=== PATIENT | male | born 1980 | race African-American/Black ===

== ENCOUNTER 2016-07-03 11:10 | Inpatient (IN) ==
[2016-07-03] MEDS ORDERED: NITROGLYCERIN SL 0.4 MG TABLET SL ONE (13:01)
[2016-07-03] MEDS: NITROGLYCERIN SL 0.4 MG TABLET SL PRN ×2 (13:02→14:43)
[2016-07-03 13:06] LABS: Basophils % 0.3 % (0.0-0.8); Eosinophils # 0.3 10*3/uL (0.0-0.87); Eosinophils % 2.5 % (0.00-10.9); Hemoglobin 14.4 GM/DL (14.0-18.0); Immature Granulocytes % 0.3 %; Immature Granulocytes Absolute 0.03 #; Lymphocytes # 2.8 10*3/uL (1.4-4.0); Lymphocytes % 24.3 % (21.2-54.2); Mean Corpuscular HGB Conc 35.1 GM/DL (32-36); Mean Corpuscular Hemoglobin 30 PG (27-34); Mean Corpuscular Volume 84.7 FL (87-102); Mean Platelet Volume 11.7 FL (9.6-12.0); Monocytes # 1.3 10*3/uL (0.11-0.8); Monocytes % 11.5 % (1.7-12.7); Neutrophils % 61.1 % (38.7-73.9); Platelet Count 202 T/CUMM (130-400); Red Blood Count 4.84 MC/CUMM (3.8-5.5); Red Cell Distribution Width 12.2 % (9.3-17.3); White Blood Count 11.5 T/CUMM (4-12)
--- NOTE | 2016-07-03 13:24 | XRay Report ---
XR chest 2V Indication: Chest pain. Hypertension. Comparison: Chest x-ray 06/07/2011. Technique: PA and lateral chest x-ray was performed. Findings: Heart size, mediastinal contour, and hilar structures demonstrate no significant abnormalities. The lung parenchyma is clear. Bones and soft tissues demonstrate no significant abnormalities. Impression: 1. No active cardiopulmonary disease. 07/03/2016 1:20 PM PROCEDURE INTERPRETED AT [facility] DEPARTMENT OF RADIOLOGY Final Report Signed by: Dr. Caleb Whittington
[2016-07-03 13:42] LABS: Alanine Aminotransferase 26 U/L (16-61); Albumin 3.9 G/DL (3.4-5.0); Alkaline Phosphatase 78 U/L (45-117); Aspartate Amino Transferase 16 U/L (0-37); Blood Urea Nitrogen 12 MG/DL (7-18); Calcium 8.7 MG/DL (8.5-10.1); Glucose 91 MG/DL (74-106); Osmolality,Calculated 278.4 MOS/KG (273-304); Potassium 3.2 MMOL/L (3.5-5.1); Sodium 140 MMOL/L (136-145); Total Protein 7.6 G/DL (6.4-8.3); Troponin I Only < 0.015 NG/ML (0.00-0.045)
--- NOTE | 2016-07-03 14:47 | Emergency Department Note ---
Arrival - Arrival Chief Complaint: Non-Specific Stated Complaint: Chest pains/B/P ED Nursing Triage Note: Pt c/o high blood pressure, dizziness, chest pain, heart racing, and near syncope that has been coming and going for over one month. EKG done in triage. Mode of Arrival: Ambulatory Source: Patient Time Seen by Provider: 07/03/16 12:29 - History of Present Illness HPI Narrative: 36 y/o male presents to the ER complaining of elevated blood pressure, dizziness , chest pain, palpitations, and near syncopal episodes. Symptoms started one month ago but have progressively worsened. Describes chest pain as a sharp pain that radiates down his left arm. Reports nausea and diaphoresis. Denies dyspnea. Patient took Aspirin prior to arrival. Past medical history significant for HTN and is currently taking HCTZ 12.5 mg. No primary care physician. Onset (ago): month(s) (1) Consistency: constant Severity: mild Quality: sharp Review of System - Review of System 12 point system: reviewed and no additional remarkable complaints except as stated - Review of System Cardiovascular: Present: chest pain, palpitations Neurological: Present: other (near syncope ) Medical,Surgical,& Family Hx - Medical History Cardio: History of: Hypertension - Social History Smoking Status: Never smoker Exam Vital Signs: Vital Signs Temperature 98 F 07/03/16 12:21 Pulse Rate 68 07/03/16 13:30 Respiratory Rate 20 07/03/16 13:30 Blood Pressure 134/97 07/03/16 13:30 O2 Sat by Pulse Oximetry 98 07/03/16 11:32 - General General appearance: alert, in no apparent distress - Eye Eye exam: Present: PERRL, EOMI - ENT ENT exam: Present: normal exam, normal oropharynx, mucous membranes moist - Neck Neck exam: Present: normal inspection. Absent: meningismus - Chest Chest inspection: Present: normal inspection - Respiratory Respiratory exam: Present: normal lung sounds bilaterally - Cardiovascular Cardiovascular exam: Present: regular rate, normal rhythm, normal heart sounds - Abdominal Exam Abdominal exam: Present: soft, normal bowel sounds. Absent: tenderness - Extremities Exam Extremities exam: Present: normal inspection, full ROM - Neurological Exam Neurological exam: Present: alert, oriented X3, CN II-XII intact, normal gait - Psychiatric Psychiatric exam: Present: normal affect, normal mood - Skin Skin exam: Present: warm, dry Course - Consultations Consultation #1: Hospitalist Time: 15:00 (Discussed case with Hospitalist TEST BAKER. Will admit patient. ) Results - Labs CBC & BMP: 07/03/16 12:51 07/03/16 12:51 Lab Results: I have reviewed the patients labs - EKG EKG results: sinus rhythm - Diagnostic Findings Procedure: Chest x-ray: image reviewed by me, report reviewed by me (no acute abnormality ) Disposition Clinical Impression: Chest pain, Hypertension Disposition: Still a Patient
[2016-07-03] MEDS ORDERED: POTASSIUM CHLORIDE 20 MEQ TABLET PO STA (14:56)
[2016-07-03] MEDS ORDERED: POTASSIUM CHLORIDE 20 MEQ TABLET PO ONE (15:00)
--- NOTE | 2016-07-03 15:40 | Hospitalist History & Physical ---
Assessment and Plan - Time spent with patient Time spent with patient: Greater than 30 minutes (1) Chest pain Status: Acute Assessment and plan: Will obtain serial cardiac enzymes and echo; if positive; will consult Cardiology. Current Visit: Yes (2) Hypertension Status: Acute Assessment and plan: The patient presented with gross hypertension. He was given several agents in urgent care. We will start Norvasc and Coreg; will add Hydralazine PRN. I am concerned that the patient may have some target organ damage; will obtain echo and renal ultrasound to assessed. Discussed in great detail the importance of medical compliance; both patient and mother seem concerned about his current rodrigo status. Patient has a strong family history of hypertension, myocardial infarction, and cerebral vascular accident. Current Visit: Yes History of Present Illness Chief complaint: chest pain/hypertensive emergency History of present illness: This is a very pleasant 36 year old male that presented to [facility] for evaluation of "high blood pressure". The patient reports a past medical history of hypertension. He reports remote diagnosis in 2010 in which he was prescribed medications at that time. He reports that he stopped taking the medications because" it made him feel bad". Recently; he presented to a clinic in [place] for evaluation of headaches and visual disturbances. At that time, he was started back on low dose hydrochlorothiazide and instructed to follow-up. On yesterday, he reported a gradual onset of headache and visual disturbances. He reported that he started having chest pain and discomfort this morning in addition to the headache and visual disturbances. He was given an aspirin by his mother. He became alarmed and decided to seek medical attention. Incidentally, the patient reports the onset of intermittent chest pain over one month ago; however was able to manage the symptoms. At the time of presentation, he was noted to be grossly hypertensive with a blood pressure noted at 201/108 and complaining of chest pain. Nitroglycerin was applied and EKG was obtained which reported normal sinus . Chest radiograph was essentially unremarkable. Labs were obtained which reported slight hypokalemia with a potassium of 3.2, troponin of <0.015, and CKMB of <1.0. After brief discussion with both PATRICK Joaquin and Dr. Leyva, the patient will be admitted to the hospitalist service for continuation of care. Home Medications Medication Instructions Recorded Confirmed Type hydroCHLOROthiazide 12.5 PO DAILY 07/03/16 History [Hydrochlorothiazide] Allergies Allergy/AdvReac Type Severity Reaction Status Date / Time No Known Allergies Allergy Verified 07/03/16 15:34 Medical,Surgical,& Family Hx - Medical History Cardio: History of: Hypertension - Social History Smoking Status: Never smoker 12 point system: reviewed and no additional remarkable complaints except as stated Exam - Constitutional Vitals: Period Temp Pulse Resp BP Sys/Main Pulse Ox Last 24 Hr 98 F-98.0 F 65-79 18-20 134-201/95-108 98-100 General appearance: normal weight, no acute distress - Head Head exam: Present: normal inspection, normocephalic, atraumatic - Eye Eye exam: Present: EOMI. Absent: conjunctival injection Pupils: Present: ABRAN, normal accommodation - ENT ENT exam: Present: normal exam, normal external ear exam, normal oropharynx - Neck Neck exam: Present: normal inspection. Absent: lymphadenopathy, meningismus, tenderness, thyromegaly - Respiratory Respiratory exam: Present: clear to auscultation bilaterally. Absent: rales, stridor, wheezes - Cardiovascular Cardiovascular exam: Absent: carotid bruit, diastolic murmur, gallop, JVD, rubs , systolic murmur - GI/Abdominal GI/Abdominal exam: Present: normal bowel sounds, soft - Extremities Exam Extremities exam: Present: normal inspection, normal capillary refill, full ROM , edema - Back Exam Back exam: Present: normal inspection - Neurological Exam Neurological exam: Present: alert, oriented X3, CN II-XII intact - Psychiatric Psychiatric exam: Present: normal affect, normal mood - Skin Skin exam: Present: normal color, warm, dry Results - Labs CBC & BMP: 07/03/16 12:51 07/03/16 12:51 Lab Results: I have reviewed the past 24 hour labs
[2016-07-03] MEDS ORDERED: ONDANSETRON 4 MG/2 ML VIAL IV PRN (15:47)
[2016-07-03] MEDS ORDERED: hydrALAZINE 20 MG/1 ML VIAL IV PRN (15:47)
--- NOTE | 2016-07-03 15:52 | EKG Report ---
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
--- NOTE | 2016-07-03 16:30 | Ultrasound Report ---
US renal Bilateral Indication: Hypertension Comparison: None. Technique: Using transcutaneous probe, routine renal ultrasound was performed. Ultrasound images were captured and stored. Findings: Right kidney measures approximately 10 cm in craniocaudal dimension. Left kidney measures approximately 10 cm in craniocaudal dimension. Neither kidney demonstrates evidence of hydronephrosis, perinephric fluid collection, or nephrolithiasis. The renal cortices are relatively hyperechoic and loss of normal architectural detail is present. Impression: 1. Nonspecific hyperechoic appearance of the renal cortices may reflect sequelae of medical renal disease. 07/03/2016 4:26 PM PROCEDURE INTERPRETED AT [facility] DEPARTMENT OF RADIOLOGY Final Report Signed by: Dr. Caleb Whittington
[2016-07-03 17:09] LABS: Magnesium 2.2 MG/DL (1.8-2.4); Phosphorous 3.7 MG/DL (2.5-4.9); Risk Ratio 3.7; Troponin I Only 0.017 NG/ML (0.00-0.045)
--- NOTE | 2016-07-03 18:24 | EKG Report ---
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
[2016-07-03] MEDS: CARVEDILOL 12.5 MG TABLET PO SCH (20:10)
[2016-07-03] MEDS ORDERED: CARVEDILOL 6.25 MG TABLET PO SCH (21:00)
[2016-07-03] MEDS ORDERED: PHENOL 1.4% THROAT SPRAY 177 ML BOTTLE PO PRN (23:42)
[2016-07-04 05:48] LABS: Basophils % 0.2 % (0.0-0.8); Eosinophils # 0.3 10*3/uL (0.0-0.87); Eosinophils % 2.7 % (0.00-10.9); Hematocrit 40.9 VOL% (42.0-52.0); Hemoglobin 14.3 GM/DL (14.0-18.0); Immature Granulocytes % 0.4 %; Immature Granulocytes Absolute 0.04 #; Lymphocytes # 1.8 10*3/uL (1.4-4.0); Lymphocytes % 19.2 % (21.2-54.2); Mean Corpuscular Hemoglobin 30 PG (27-34); Mean Corpuscular Volume 84.5 FL (87-102); Mean Platelet Volume 12.1 FL (9.6-12.0); Monocytes % 10.8 % (1.7-12.7); Neutrophils # 6.3 10*3/uL (1.4-7.4); Neutrophils % 66.7 % (38.7-73.9); Platelet Count 193 T/CUMM (130-400); Red Blood Count 4.84 MC/CUMM (3.8-5.5); Red Cell Distribution Width 11.9 % (9.3-17.3); White Blood Count 9.4 T/CUMM (4-12)
[2016-07-04 06:17] LABS: Albumin 3.6 G/DL (3.4-5.0); Bilirubin,Total 1.6 MG/DL (0.2-1.0); Calcium 8.8 MG/DL (8.5-10.1); Magnesium 2.3 MG/DL (1.8-2.4); Osmolality,Calculated 281.3 MOS/KG (273-304); Phosphorous 3.7 MG/DL (2.5-4.9); Potassium 3.6 MMOL/L (3.5-5.1); Total Protein 6.4 G/DL (6.4-8.3)
--- NOTE | 2016-07-04 06:17 | EKG Report ---
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
--- NOTE | 2016-07-04 07:53 | Discharge Summary ---
Hospital Course - Hospital Course Hospital Course: 36-year-old -[place] male presents to the emergency room with complaints of chest pain. Serial troponins are negative. EKG nonspecific ST changes. Patient was hypertensive on admission but is now well controlled. We will set him up for an outpatient stress test. Patient also complaining of sore throat. He is got a pustule over his left tonsil consistent with most likely strep throat. We will treat amoxicillin for 10 days. Follow-up with Dr. Benitez as he does not have a primary care physician. Patient has a mass on he is right leg feels more like a fatty tumor could be fibroid in nature. We will send him to dermatology to aspirate and treat. Patient's mother is at bedside she reports having malignant tumors that run in her side of the family that show up looking like fatty tumors. - Time spent with patient Time with patient DS: Less than 30 minutes (25 min) Discharge Plan - Discharge Data Disposition: Disch To Home/Self Care Condition at Discharge: Stable Discharge Diet: heart healthy Activity: resume usual activities as tolerated Hygiene: no restrictions Weight Bearing at Discharge: full weight bearing - Discharge Medications New Carvedilol [Coreg] 12.5 mg PO BID #60 tablet Phenol 1.4% Throat [place] [Chloraseptic [place]] 5 spray PO Q2H PRN #0 bottle PRN Reason: Sore Throat Amoxicillin Cap/Tab 500 mg PO BID #20 capsule amLODIPine [Norvasc] 10 mg PO DAILY #30 tablet Discontinued hydroCHLOROthiazide [Hydrochlorothiazide] 12.5 mg PO DAILY - Follow Up or Referral Follow Up: Dr. mireille [Other] - 2 Weeks (right leg mass, ?fatty tumor ) [place] benitez [Other] - 2 Weeks [facility], stress test [Other] - 1 Week - Forms/Instructions Exam - Constitutional Vitals: Period Temp Pulse Resp BP Sys/Main Pulse Ox Last 24 Hr 97.9 F-99.8 F 65-79 18-20 137-172/65-112 92-100 General appearance: normal weight, no acute distress - Respiratory Respiratory exam: Present: clear to auscultation bilaterally - Cardiovascular Cardiovascular exam: Present: regular rate and rhythm - GI/Abdominal GI/Abdominal exam: Present: normal bowel sounds, soft. Absent: tenderness - Extremities Exam Extremities exam: Present: normal inspection, normal capillary refill - Neurological Exam Neurological exam: Present: alert, oriented X3 - Psychiatric Psychiatric exam: Present: normal affect, normal mood Discharge Results Procedures and tests throughout hospitalization: Pending Orders 07/03/16 12:51 Thyroid Function Toole, S Stat Labs on day of discharge: Labs from last 24 hours 07/04/16 07/04/16 07/03/16 04:29 04:29 21:54 WBC 9.4 RBC 4.84 Hgb 14.3 Hct 40.9 L MCV 84.5 L MCH 30 MCHC 35.0 RDW 11.9 Plt Count 193 MPV 12.1 H Neut % (Auto) 66.7 Lymph % (Auto) 19.2 L [place] % (Auto) 10.8 Eos % (Auto) 2.7 Baso % (Auto) 0.2 Neut # (Auto) 6.3 Lymph # (Auto) 1.8 [place] # (Auto) 1.0 H Eos # (Auto) 0.3 Baso # (Auto) 0.0 Immature Gran % 0.4 Nucleated RBC % 0.0 Immature Gran # 0.04 Nucleated RBCs # 0.00 Sodium 141 Potassium 3.6 Chloride 106 Carbon Dioxide 27 Anion Gap 11.6 BUN 14 Creatinine 1.10 GFR Calculation 132 BUN/Creatinine Ratio 12.00 Glucose 93 Calculated Osmolality 281.3 Calcium 8.8 Phosphorus 3.7 Magnesium 2.3 Total Bilirubin 1.60 H AST 14 ALT 23 Alkaline Phosphatase 72 Troponin I 0.019 Total Protein 6.4 Albumin 3.6 Globulin 2.8 Albumin/Globulin Ratio 1.2 Triglycerides Cholesterol LDL Cholesterol VLDL Cholesterol HDL Cholesterol Heart Disease Risk Ratio 07/03/16 07/03/16 18:59 16:03 WBC RBC Hgb Hct MCV MCH MCHC RDW Plt Count MPV Neut % (Auto) Lymph % (Auto) [place] % (Auto) Eos % (Auto) Baso % (Auto) Neut # (Auto) Lymph # (Auto) [place] # (Auto) Eos # (Auto) Baso # (Auto) Immature Gran % Nucleated RBC % Immature Gran # Nucleated RBCs # Sodium Potassium Chloride Carbon Dioxide Anion Gap BUN Creatinine GFR Calculation BUN/Creatinine Ratio Glucose Calculated Osmolality Calcium Phosphorus 3.7 Magnesium 2.2 Total Bilirubin AST ALT Alkaline Phosphatase Troponin I 0.024 0.017 Total Protein Albumin Globulin Albumin/Globulin Ratio Triglycerides 110 Cholesterol 163 LDL Cholesterol 100.0 VLDL Cholesterol 22.0 HDL Cholesterol 44 Heart Disease Risk Ratio 3.70 DS: Provider Date of admission: 07/03/16 15:01 Primary care physician: . No PCP Attending physician on admission: Kaia Maloney MD Consults: 07/03/16 16:03 Consult to Physician [CONS] Routine Comment: chest pain Consulting Provider: Consult to Specialist Group: Cardiology When should Consulting Provider be notified: In am Discharging clinician: Beth Burger MD
[2016-07-04 08:10] VITALS: BP 132/81
[2016-07-04] MEDS: CARVEDILOL 12.5 MG TABLET PO SCH (08:35)
[2016-07-04] MEDS ORDERED: hydroCHLOROthiazide 25 MG TABLET PO SCH (09:00)
[2016-07-04] MEDS ORDERED: amLODIPine 10 MG TABLET PO SCH (09:00)
[2016-07-04] MEDS ORDERED: AMOXICILLIN 500 MG CAPSULE PO SCH (09:00)
[2016-07-04] MEDS ORDERED: ASPIRIN 325 MG TABLET PO SCH (09:00)
[2016-07-04] MEDS ORDERED: amLODIPine 5 MG TABLET PO SCH (09:00)
--- NOTE | 2016-07-04 18:57 | ECHO Report ---
Adela Salazar Exam Date: 07/04/2016 08:55 Referring Physician: Technologist: Olivia Kapoor Age: 36 Ht (in): 72 Wt (lb): 241 Gender: M Exam Location: [facility] Echo Indications: Chest pain, unspecified, Essential (primary) hypertension BP: 137 / 65 HR: 69 Rhythm: Sinus Technical Quality: Fair IMPRESSIONS Normal LV systolic function, ejection fraction 65%. Normal diastolic function. Borderline left ventricular hypertrophy. Trace tricuspid regurgitation. Mild pulmonic regurgitation. MEASUREMENTS (Male / Female) Normal Values 2D ECHO LV Diastolic Diameter PLAX 4.9 cm 4.2 - 5.9 / 3.9 - 5.3 cm LV Systolic Diameter PLAX 3.0 cm LV Fractional Shortening PLAX 38.5 % IVS Diastolic Thickness 1.1 cm 0.6 - 1.0 / 0.6 - 0.9 cm LVPW Diastolic Thickness 1.2 cm 0.6 - 1.0 / 0.6 - 0.9 cm RV Internal Dim ED PLAX 3.5 cm Aortic Root Diameter 3.1 cm LA Systolic Diameter LX 3.6 cm 3.0 - 4.0 / 2.7 - 3.8 cm DOPPLER TR Peak Velocity 225.0 cm/s TR Peak Gradient 20.3 mmHg FINDINGS Left Ventricle Normal left ventricular cavity size. Mild left ventricular hypertrophy. Left ventricular ejection fraction is estimated at 65 %. Right Ventricle The right ventricle is normal in size and function. Right Atrium The right atrium is normal in size. Left Atrium The left atrium is normal in size. Mitral Valve Morphologically normal mitral valve without significant stenosis or prolapse. There is no mitral regurgitation. Aortic Valve Morphologically normal aortic valve without significant sclerosis or stenosis. There is no aortic regurgitation. Tricuspid Valve Morphologically normal tricuspid valve without significant stenosis. There is trace regurgitation. Pulmonary artery systolic pressure is normal. Pulmonic Valve Morphologically normal pulmonic valve. Mild pulmonary valve regurgitation. Pericardium Normal pericardium without effusion. Aorta Normal ascending aorta dimension. Kendra Barbosa MD (Electronically Signed) Final Date: 04 Jul 2016 18:56
== END 2016-07-04 10:25 | disposition home or self-care (01) | DRG 313 ==
LOC: N.ED 11:10 → N.EDINP 15:01 → SUATTDRO 15:01 → N.TELEN 15:42
PROVIDERS: ADMIT Internal Medicine; ATTEND Internal Medicine